=== PATIENT | male | born 1955 ===

== ENCOUNTER 2017-07-06 11:18 | Emergency (ER) | payer OTHER ==
[2017-07-06 11:35] VITALS: RESP 18
[2017-07-06 13:49] LABS: BASO % 0.7 % (0.0-2.0); EOS # 0.1 K/uL (0.0-0.7); HEMATOCRIT 45.7 % (35.0-51.0); LYMPH # 1.5 K/uL (1.0-4.3); MEAN CELL VOLUME 84.8 fL (80.0-94.0); MEAN CORPUSCULAR HEMOGLOBIN 29.6 pg (27.0-31.0); MEAN CORPUSCULAR HGB CONC 34.9 g/dL (33.0-37.0); MEAN PLATELET VOLUME 7.9 fL (7.2-11.7); MONO # 0.4 K/uL (0.0-0.8); MONO % 8.3 % (0.0-10.0); RED CELL DISTRIBUTION WIDTH 13.5 % (11.5-14.5); WHITE BLOOD COUNT 4.7 K/uL (4.8-10.8)
[2017-07-06 13:55] LABS: CHLORIDE 101 mmol/L (98-107)
[2017-07-06 13:56] LABS: SODIUM 139 mmol/L (132-148)
[2017-07-06 13:58] LABS: AST/SGOT 29 U/L (17-59); BILIRUBIN,TOTAL 0.7 mg/dL (0.2-1.3); CARBON DIOXIDE 26 mmol/L (22-30); GFR AFRICAN-AMERICAN > 60
[2017-07-06 13:59] LABS: ALB/GLOB RATIO 1.4 (1.0-2.1); ALKALINE PHOSPHATASE 80 U/L (38-126); ALT/SGPT 39 U/L (21-72); BLOOD UREA NITROGEN 10 mg/dL (9-20); CALCIUM 9.6 mg/dl (8.6-10.4); GLUCOSE,RANDOM 101 mg/dL (75-110); TOTAL PROTEIN 7.6 g/dL (6.3-8.3)
--- NOTE | 2017-07-06 14:18 | RAD ---
PROCEDURE: CHEST RADIOGRAPH, 1 VIEW HISTORY: chest pain COMPARISON: None available. FINDINGS: LUNGS: Poor inspiration with low lung volumes, crowded bronchovascular markings and mild bibasilar atelectasis left greater than right PLEURA: Suspect minor biapical pleural thickening. No evidence of pneumothorax or pleural effusion CARDIOVASCULAR: Heart size is upper limits of normal/ borderline enlarged. Aorta appears ectatic and uncoiled. OSSEOUS STRUCTURES: No significant abnormalities. VISUALIZED UPPER ABDOMEN: Normal. OTHER FINDINGS: None. IMPRESSION: Poor inspiration with low lung volumes, crowded bronchovascular markings and mild bibasilar atelectasis left greater than right
--- NOTE | 2017-07-06 14:18 | C.PDOC ---
History Of Present Illness 62 y/o male presents to ED with c/o intermittent, sharp substernal chest pain for appx. 8 months. Denies cough, SOB, nausea, vomiting, diarrhea, constipation , or other associated symptoms. 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 Denies any acute changes today. Time Seen by Provider: 07/06/17 13:03 Chief Complaint (Nursing): Chest Pain History Per: Patient History/Exam Limitations: no limitations Onset/Duration Of Symptoms: Days Current Symptoms Are (Timing): Still Present Associated Symptoms: denies: Nausea, Dyspnea, Diaphoresis Exacerbating Factors: None Recent travel outside of the [place]: No Past Medical History Reviewed: Historical Data, Nursing Documentation, Vital Signs Vital Signs: Last Vital Signs Temp 97.7 F 07/06/17 14:50 Pulse 70 07/06/17 14:50 Resp 18 07/06/17 14:50 BP 166/100 H 07/06/17 14:50 Pulse Ox 98 07/06/17 14:50 - Medical History PMH: HTN Family History: States: Unknown Family Hx - Social History Hx Alcohol Use: Yes Hx Substance Use: No Review Of Systems Except As Marked, All Systems Reviewed And Found Negative. Constitutional: Negative for: Fever, Chills Cardiovascular: Positive for: Chest Pain (substernal). Negative for: Palpitations, Edema Respiratory: Negative for: Cough, Shortness of Breath Gastrointestinal: Negative for: Nausea, Vomiting, Abdominal Pain Skin: Negative for: Rash Neurological: Negative for: Headache Physical Exam - Physical Exam Appears: Non-toxic, No Acute Distress Skin: Normal Color, Warm, Dry Head: Atraumatic, Normacephalic Oral Mucosa: Moist Chest: Symmetrical, Tenderness (reproducible, substernal - non-radiating) Cardiovascular: Rhythm Regular, No Murmur Respiratory: Normal Breath Sounds, No Accessory Muscle Use, No Rales, No Rhonchi , No Wheezing Gastrointestinal/Abdominal: Soft, No Tenderness, No Guarding, No Rebound Back: Normal Inspection Extremity: Normal ROM, Capillary Refill (< 2 sec. ) Neurological/Psych: Oriented x3, Normal Speech, Normal Cognition ED Course And Treatment - Laboratory Results Result Diagrams: 07/06/17 13:35 07/06/17 13:35 ECG: Interpreted By Me ECG Rhythm: Sinus Rhythm ECG Interpretation: Normal Rate From EC (bpm) O2 Sat by Pulse Oximetry: 97 (RA) Pulse Ox Interpretation: Normal Medical Decision Making Medical Decision Making: PLAN: * EKG, CXR, Bloodwork * Toradol * Reassess PROGRESS: Disposition - Disposition Referrals: Dianne Musa Moniquemalcolm, [Non-Staff] - Disposition: HOME/ ROUTINE Disposition Time: 14:45 Condition: GOOD Additional Instructions: Thank you for letting us take care of you today. Your provider was Dr. Arrington. You were treated for costocondritis. The emergency medical care you received today was directed at your acute symptoms. If you were prescribed any medication, please fill it and take as directed. It may take several days for your symptoms to resolve. Return to the Emergency Department if your symptoms worsen, do not improve, or if you have any other problems. Please contact your doctor or call one of the physicians/clinics you have been referred to that are listed on the Patient Visit Information form that is included in your discharge packet. Bring any paperwork you were given at discharge with you along with any medications you are taking to your follow up visit. Our treatment cannot replace ongoing medical care by a primary care provider (PCP) outside of the emergency department. Thank you for allowing the [facility] team to be part of your care today. Followup with your primary doctor in 2-3 days for re-evaluation. Prescriptions: Ibuprofen [Motrin] 600 mg PO Q6 PRN #20 tab PRN Reason: Pain, Moderate (4-7) Instructions: Costochondritis (ED) Forms: Gen Discharge Inst Sierra Leonean Print Language: BAHRAINI - Clinical Impression Clinical Impression: Costochondral chest pain - Scribe Statement The provider has reviewed the documentation as recorded by the Scribe SM All medical record entries made by the Scribe were at my direction and personally dictated by me. I have reviewed the chart and agree that the record accurately reflects my personal performance of the history, physical exam, medical decision making, and the department course for this patient. I have also personally directed, reviewed, and agree with the discharge instructions and disposition.
[2017-07-06 14:51] VITALS: BP 166/100; PULSE 70; TEMP 97.7
[2017-07-07 00:31] VITALS: O2SAT 97
--- NOTE | 2017-07-10 16:09 | CARD ---
APPROVED REPORT EKG Measurement Heart [id number] <Conclusion> Normal sinus rhythm Nonspecific intraventricular block Abnormal ECG
== END 2017-07-06 15:19 | disposition home or self-care (01) ==
LOC: C.ER 11:18
DX: R07.89 Other chest pain (principal)
CPT/HCPCS: 71010; 80053; 83880; 84484; 85025; 96374; 99284; J1885

== ENCOUNTER 2018-04-21 11:55 | Emergency (ER) | payer OTHER ==
[2018-04-21 12:01] VITALS: BMI 24.5
[2018-04-21 12:11] VITALS: O2SAT 98
[2018-04-21 12:20] LABS: BASO % 0.9 % (0.0-2.0); EOS # 0.1 K/uL (0.0-0.7); EOS % 2.4 % (0.0-4.0); HEMOGLOBIN 15.8 g/dL (12.0-18.0); LYMPH # 1.5 K/uL (1.0-4.3); LYMPH % 37.3 % (20.0-40.0); MEAN CELL VOLUME 85.3 fL (80.0-94.0); MEAN CORPUSCULAR HEMOGLOBIN 30.3 pg (27.0-31.0); MEAN CORPUSCULAR HGB CONC 35.6 g/dL (33.0-37.0); MEAN PLATELET VOLUME 7.8 fL (7.2-11.7); MONO # 0.5 K/uL (0.0-0.8); MONO % 11.5 % (0.0-10.0); NEUT # 1.9 K/uL (1.8-7.0); NEUT % 47.9 % (50.0-75.0); NRBC % 0.1 % (0.0-2.0); RBC 5.22 Mil/uL (4.40-5.90); RED CELL DISTRIBUTION WIDTH 13.3 % (11.5-14.5)
[2018-04-21 12:42] LABS: ALB/GLOB RATIO 1.3 (1.0-2.1); ALBUMIN 4.3 g/dL (3.5-5.0); ALT/SGPT 26 U/L (21-72); AST/SGOT 29 U/L (17-59); BLOOD UREA NITROGEN 9 mg/dL (9-20); CALCIUM 9.5 mg/dl (8.6-10.4); GFR AFRICAN-AMERICAN > 60; GFR NON-AFRICAN AMERICAN > 60
[2018-04-21 12:46] LABS: CK-MB 1.13 ng/mL (0.0-3.38)
[2018-04-21 13:00] LABS: URINE BILIRUBIN NEGATIVE (NEGATIVE); URINE BLOOD NEGATIVE (NEGATIVE); URINE CLARITY Clear (Clear); URINE COLOR Straw (YELLOW); URINE GLUCOSE (UA) NORMAL (Normal); URINE LEUKOCYTE ESTERASE NEG Leu/uL (Negative); URINE PROTEIN NEGATIVE (NEGATIVE); URINE UROBILINOGEN NORMAL mg/dL (0.2-1.0)
--- NOTE | 2018-04-21 13:18 | RAD ---
PROCEDURE: CHEST RADIOGRAPH, 1 VIEW HISTORY: Shortness of breath COMPARISON: 07/06/2017. FINDINGS: LUNGS: The lungs are well inflated and clear. PLEURA: No pneumothorax or pleural fluid seen. CARDIOVASCULAR: Normal. OSSEOUS STRUCTURES: No significant abnormalities. VISUALIZED UPPER ABDOMEN: Normal. OTHER FINDINGS: None. IMPRESSION: No active pulmonary disease.
--- NOTE | 2018-04-21 13:39 | C.PDOC ---
History Of Present Illness 63-year-old male presents to the ED for evaluation of left-sided chest pain that radiates into left arm for 3 weeks. Patient states symptoms are constant and worse with movement. 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 He denies recent trauma/injury to the site as well as headache, nausea, vomiting, extremity numbness/weakness. Time Seen by Provider: 04/21/18 12:02 Chief Complaint (Nursing): Chest Pain History Per: Patient History/Exam Limitations: no limitations Onset/Duration Of Symptoms: Other (3 weeks ) Current Symptoms Are (Timing): Still Present Severity: Mild Quality: Sharp, "Pain" Exacerbating Factors: Movement Additional History Per: Patient Past Medical History Reviewed: Historical Data, Nursing Documentation, Vital Signs Vital Signs: Last Vital Signs Temp Pulse 64 04/21/18 13:45 Resp 15 04/21/18 13:45 BP 141/92 H 04/21/18 14:06 Pulse Ox 98 04/21/18 15:03 - Medical History PMH: HTN Surgical History: No Surg Hx Family History: States: Unknown Family Hx - Social History Hx Alcohol Use: Yes Hx Substance Use: No Review Of Systems Cardiovascular: Positive for: Chest Pain (left-sided) Respiratory: Negative for: Shortness of Breath Musculoskeletal: Positive for: Arm Pain (left ) Physical Exam - Physical Exam Appears: Non-toxic, No Acute Distress Skin: Normal Color, Warm, Dry Head: Atraumatic, Normacephalic Eye(s): bilateral: Normal Inspection Oral Mucosa: Moist Neck: Supple Chest: Symmetrical, No Deformity, Tenderness (left-sided ) Cardiovascular: Rhythm Regular, No Murmur Respiratory: Normal Breath Sounds, No Rales, No Rhonchi, No Wheezing Extremity: Normal ROM, Tenderness (to lateral aspect of left shoulder ), Capillary Refill (less than 2 seconds ), No Deformity, No Swelling Neurological/Psych: Oriented x3, Normal Speech, Normal Cognition ED Course And Treatment - Laboratory Results Result Diagrams: 04/21/18 12:17 04/21/18 12:17 Lab Interpretation: Normal ECG: Interpreted By Nd ECG Rhythm: Sinus Rhythm ECG Interpretation: No Acute Changes Rate From EC O2 Sat by Pulse Oximetry: 98 (on RA) Pulse Ox Interpretation: Normal - Radiology CXR: Interpreted by Me CXR Interpretation: Yes: No Acute Disease Progress Note: Bloodwork, urinalysis, CXR, and EKG ordered and reviewed. Toradol IVP administered. Reassessment Condition: Improved Disposition - Disposition Referrals: [facility] [Outside] [facility] [Outside] Disposition: HOME/ ROUTINE Disposition Time: 14:30 Condition: GOOD Additional Instructions: Return to ED if any increase symptoms Prescriptions: Naproxen [Naprosyn] 1 tab PO BID PRN #25 tab PRN Reason: Pain Instructions: Costochondritis Forms: [employer] (Nicaraguan) Print Language: BENGALI - Clinical Impression Clinical Impression: Costochondral chest pain, Chest wall pain - PA / WOLF HUNTER / Resident Statement MD/DO has reviewed & agrees with the documentation as recorded. - Scribe Statement The provider has reviewed the documentation as recorded by the Scribe (Perla Carpenter) All medical record entries made by the Scribe were at my direction and personally dictated by me. I have reviewed the chart and agree that the record accurately reflects my personal performance of the history, physical exam, medical decision making, and the department course for this patient. I have also personally directed, reviewed, and agree with the discharge instructions and disposition.
[2018-04-21 13:46] VITALS: PULSE 64; RESP 15
--- NOTE | 2018-04-21 13:59 | C.PDOC ---
Time Seen by Provider: 04/21/18 12:02 Chief Complaint (Nursing): Chest Pain Past Medical History Vital Signs: Last Vital Signs Temp Pulse 75 04/21/18 12:07 Resp 20 04/21/18 12:07 BP 107/79 04/21/18 12:07 Pulse Ox 98 04/21/18 12:07 - Medical History PMH: HTN Family History: States: Unknown Family Hx - Social History Hx Alcohol Use: Yes Hx Substance Use: No ED Course And Treatment - Laboratory Results Result Diagrams: 04/21/18 12:17 04/21/18 12:17 O2 Sat by Pulse Oximetry: 98 Disposition - Disposition
[2018-04-21 14:06] VITALS: BP 141/92
--- NOTE | 2018-04-22 23:53 | CARD ---
APPROVED REPORT EKG Measurement Heart [id number] [place] [id number] <Conclusion> Normal sinus rhythm Left axis deviation Minimal voltage criteria for LVH, may be normal variant Abnormal ECG
== END 2018-04-21 14:26 | disposition home or self-care (01) ==
LOC: C.ER 11:55
DX: R07.89 Other chest pain (principal)
CPT/HCPCS: 71045; 80053; 81001; 82553; 84484; 85025; 93005; 96374; 99284; J1885

== ENCOUNTER 2019-02-22 08:16 | Emergency (ER) | payer SELFPAY ==
[2019-02-22 08:24] VITALS: BMI 30.2
[2019-02-22 08:31] VITALS: BP 179/106; PULSE 82; RESP 17; TEMP 98.5; O2SAT 96
[2019-02-22] MEDS ORDERED: Tetanus/Diphtheria Toxoids 0.5 ml Syringe IM ONE ×2 (08:55→10:06)
[2019-02-22] MEDS ORDERED: Tmp-Smz 800 mg-160 mg DS Tab PO STA (08:55)
--- NOTE | 2019-02-22 09:14 | C.PDOC ---
History Of Present Illness 63 yo male come in for evaluation of Left middle finger puncture wound sustained yesterday with nail. Pt admits, noted today some diffuse swelling over tip of left middle finger associated with scant bloody oozing. Otherwise, pt denies fever, chills, weakness, obvious new deformity, sensory or vascular deficit to injured finger. Time Seen by Provider: 02/22/19 08:34 Chief Complaint (Nursing): Finger,Hand,&Wrist History Per: Patient Past Medical History Reviewed: Historical Data, Nursing Documentation, Vital Signs Vital Signs: Last Vital Signs Temp 98.5 F 02/22/19 08:24 Pulse 82 02/22/19 08:24 Resp 17 02/22/19 08:24 BP 179/106 H 02/22/19 08:24 Pulse Ox 96 02/22/19 08:24 - Medical History PMH: HTN Family History: States: Unknown Family Hx - Social History Hx Tobacco Use: No Hx Alcohol Use: Yes Hx Substance Use: No - Immunization History Hx Tetanus Toxoid Vaccination: No Hx Influenza Vaccination: No Hx Pneumococcal Vaccination: No Review Of Systems Except As Marked, All Systems Reviewed And Found Negative. Constitutional: Negative for: Fever, Chills Musculoskeletal: Positive for: Hand Pain Skin: Positive for: Other (puncture wound) Neurological: Negative for: Weakness, Numbness Physical Exam - Physical Exam Appears: Well, Non-toxic, No Acute Distress Skin: Normal Color, Warm Extremity: Normal ROM (FAROM of Left middle finger, no neurovascular deficits distally to injury.), Tenderness (Left 3rd distal phalanx with diffuse edema, s mall two puncture wounds noted, scant bloody oozing. No proximal streaking.), Capillary Refill (less than 2sec to Left 3rd finger), No Deformity Pulses: Left Radial: Normal Neurological/Psych: Oriented x3, Normal Speech ED Course And Treatment O2 Sat by Pulse Oximetry: 96 - Other Rad Left 3rd finger X-Ray: Interpreted by Me, Viewed By Me Interpretation: (-) acute new fx or dislocation, (-) FB Progress Note: On re-eval, pt is afebrile, hemodynamicaly stable. Non-toxic. left hand: wound soaked, cleaned over left 3rd finger. FAROM, no neurovascular deficits. No evidence of cellulitis, abscess. tetanus, Bactrim PO given. Pt advised on course of ds. HTN noted on triage, pt denies any associated sx, admits " forgot to take his meds today". ref. to f/u with PMD in 2 days for re- eval,. Return to ED if any sign of infection. Disposition Counseled Patient/Family Regarding: Studies Performed, Diagnosis, Need For Followup, Rx Given - Disposition Referrals: [facility] [Outside] Disposition: HOME/ ROUTINE Disposition Time: 09:30 Condition: STABLE Additional Instructions: Warm salty water finger soaks twice daily for 5 minutes Take antibiotic as prescribed Follow up with PMD in 2-3 days for re-evaluation. Return to ED if any sign of infection, redness or any worsening or new changes Prescriptions: Sulfamethoxazole/Trimethoprim [Bactrim DS 800 mg-160 mg] 1 tab PO BID #14 tab Instructions: Wound Care (DC), High Blood Pressure in Adults Forms: [employer] (Sinhala) Print Language: DOMINICAN - Clinical Impression Clinical Impression: Puncture wound, HTN (hypertension)
[2019-02-22] MEDS ORDERED: Tmp-Smz 800 mg-160 mg DS Tab ONE (10:04)
--- NOTE | 2019-02-22 13:52 | RAD ---
Date of service: 02/22/2019 PROCEDURE: Left middle finger radiographs. HISTORY: injury COMPARISON: None. TECHNIQUE: AP radiograph of the left hand, as well as spot oblique and lateral images of index finger were obtained. 4 views obtained. FINDINGS: LEFT MIDDLE FINGER: On series 3, image 1 the lateral view of the 3rd distal phalanx there is smooth concave cortex near the dorsal tip of the distal phalanx of the same apparently this is where patient's trauma is. It is unclear if this is a developmental variant or tiny penetration type injury through the bone. Clinical correlation is essential. No periosteal type reaction seen. Comminuted fracture type appearance suggested. JOINTS: Diffuse degenerative type narrowing of all inter and distal interphalangeal joints. And mild metacarpal phalangeal joint space narrowing as well. SOFT TISSUES: Increased soft tissue density and mild soft tissue swelling over 3rd digit tip in nail area. OTHER FINDINGS: None. IMPRESSION: Indeterminate findings regarding the volar aspect of the med digits tuft-considerations are as above. No comminuted type fracture No periosteal reaction. Clinical correlation with the mechanism of injury is essential. No radiopaque foreign body seen. Comments: Study marked for PA review .
== END 2019-02-22 10:39 | disposition home or self-care (01) ==
LOC: C.ER 08:16
DX: S61.233A Puncture wound without foreign body of left middle finger without damage to nail, initial encounter (principal); W45.0XXA Nail entering through skin, initial encounter; I10 Essential (primary) hypertension